=== PATIENT | male | born 1975 | race Caucasian/White ===

== ENCOUNTER 2017-06-05 22:33 | Emergency (ER) | payer OTHER ==
[2017-06-06] MEDS: KETOROLAC 60 MG INJ IM (00:13)
== END 2017-06-06 00:30 | disposition home or self-care (01) ==
LOC: FTE 22:33
DX: M79.662 Pain in left lower leg (principal)
CPT/HCPCS: 96372; 99284-25; J1885

== ENCOUNTER 2017-08-07 11:44 | Emergency (ER) | payer OTHER ==
[2017-08-07] MEDS: HYDROCODONE/APAP (10/325) TAB PO (12:52)
[2017-08-07] MEDS: KETOROLAC 30 MG INJ IM (12:52)
== END 2017-08-07 13:10 | disposition home or self-care (01) ==
LOC: FTE 11:44
DX: M54.5 Low back pain (principal); F17.210 Nicotine dependence, cigarettes, uncomplicated
CPT/HCPCS: 96372; 99284-25; J1885

== ENCOUNTER 2017-10-15 18:40 | Emergency (ER) | payer OTHER | END 2017-10-15 20:49 | disposition home or self-care (01) | LOC: E/R 18:40 | DX: H00.021 Hordeolum internum right upper eyelid (principal); M54.42 Lumbago with sciatica, left side; Z87.891 Personal history of nicotine dependence | CPT/HCPCS: 99284; Z7502 ==

== ENCOUNTER 2017-11-13 08:46 | Emergency (ER) | payer OTHER | END 2017-11-13 09:44 | disposition home or self-care (01) | LOC: FTE 08:46 | DX: H00.014 Hordeolum externum left upper eyelid (principal); Z87.891 Personal history of nicotine dependence | CPT/HCPCS: 99283 ==

== ENCOUNTER 2017-11-15 16:52 | Inpatient (IN) | payer OTHER ==
[2017-11-15] MEDS ORDERED: ASPIRIN 325 MG TAB PO (17:37)
[2017-11-15 17:43] LABS: ADD MAN DIFF? NO
[2017-11-15 17:45] LABS: WHITE BLOOD COUNT 9.5 10^3/ul (4.8-10.8)
[2017-11-15 17:45] LABS: BASOPHILS % 0.3 % (0.0-2.0); EOSINOPHILS % 0.1 % (0.0-7.0); HEMATOCRIT 54.7 % (42.0-52.0); HEMOGLOBIN 17.6 g/dl (14.0-18.0); LYMPHOCYTES # 0.8 10^3/ul (0.8-2.9); LYMPHOCYTES % 8.5 % (15.0-51.0); MEAN CORPUSCULAR HEMOGLOBIN 24.8 pg (29.0-33.0); MEAN CORPUSCULAR HGB CONC 32.2 g/dl (32.0-37.0); MEAN CORPUSCULAR VOLUME 76.9 fl (82.0-101.0); MEAN PLATELET VOLUME 10.6 fl (7.4-10.4); MONOCYTE # 0.6 10^3/ul (0.3-0.9); MONOCYTES % 5.9 % (0.0-11.0); NEUTROPHILS % 84.9 % (39.0-77.0); PLATELET COUNT 292 10^3/UL (140-415); RED BLOOD COUNT 7.11 10^6/ul (4.70-6.10); RED CELL DISTRIBUTION WIDTH 18.9 % (11.5-14.5)
[2017-11-15 17:59] LABS: HEMOGLOBIN A1C 5.6 % (0-5.9)
[2017-11-15 18:00] LABS: INR 0.95; PROTIME 12.8 Sec (11.9-14.9)
[2017-11-15 18:01] LABS: PARTIAL THROMBOPLASTIN TIME 23.5 Sec (25.0-35.0)
[2017-11-15 18:03] LABS: ALANINE AMINOTRANSFERASE 60 IU/L (13-69); ALBUMIN 4.4 g/dl (3.3-4.9); ALBUMIN/GLOBULIN RATIO 1.18; ALKALINE PHOSPHATASE 67 IU/L (42-121); ANION GAP 18 (8-16); ASPARTATE AMINO TRANSFERASE 41 IU/L (15-46); BILIRUBIN,INDIRECT 0.2 mg/dl (0-1.1); BILIRUBIN,TOTAL 0.2 mg/dl (0.2-1.3); BLOOD UREA NITROGEN 26 mg/dl (7-20); CALCIUM 9.9 mg/dl (8.4-10.2); CARBON DIOXIDE 30 mmol/L (21-31); CHLORIDE 99 mmol/L (97-110); CHOL/HDL RATIO 3.7 RATIO; CHOLESTEROL 148 mg/dl (100-200); CREATINE KINASE 552 IU/L (23-200); CREATININE 1.28 mg/dl (0.61-1.24); GLUCOSE 111 mg/dl (70-220); HDL CHOLESTEROL 40 mg/dl (27-67); LDL CHOLESTEROL,CALCULATED 95 mg/dl; POTASSIUM 3.9 mmol/L (3.5-5.1); SODIUM 143 mmol/L (135-144); TOTAL PROTEIN 8.1 g/dl (6.1-8.1); TRIGLYCERIDES 63 mg/dl (0-149)
[2017-11-15 18:04] LABS: ETHANOL < 10.0 mg/dl
[2017-11-15 18:14] LABS: CK-MB 5.46 ng/ml (0.0-2.4); TROPONIN-I 0.015 ng/ml (0.000-0.120)
[2017-11-15] MEDS: niCARdipine-NS 0.1MG/ML DRIP 200 ML IV (18:14)
[2017-11-15] MEDS: SOD CHLORIDE 0.9% 500 ML IV (18:17)
[2017-11-15] MEDS: SOD CHLORIDE 0.9% 100 ML (18:22)
[2017-11-15] MEDS: IOHEXOL 100 ML (18:22)
[2017-11-15] MEDS: LORAZEPAM 0.5 MG TAB PO (18:22)
[2017-11-15] MEDS ORDERED: LORAZEPAM 2 MG INJ IV (19:30)
[2017-11-15] MEDS: SOD CHLORIDE 0.9% 1,000 ML IV (19:30)
[2017-11-15] MEDS ORDERED: ACETAMINOPHEN 1000MG/100ML IV 100 ML IVPB (19:30)
[2017-11-15] MEDS ORDERED: ALBUTEROL/IPRATROPIUM (NEB) 3 ML AMP NEB (22:30)
[2017-11-16] MEDS: DEXTROSE 5%-0.45% NACL 1,000 ML IV ×2 (01:18→03:55)
[2017-11-16] MEDS: BENAZEPRIL 20 MG TAB PO ×2 (01:38→15:26)
[2017-11-16 06:25] LABS: ADD MAN DIFF? NO
[2017-11-16 06:39] LABS: WHITE BLOOD COUNT 7.4 10^3/ul (4.8-10.8)
[2017-11-16 06:39] LABS: BASOPHIL # 0.1 10^3/ul (0.0-0.1); BASOPHILS % 0.7 % (0.0-2.0); EOSINOPHILS % 0.4 % (0.0-7.0); HEMOGLOBIN 17.8 g/dl (14.0-18.0); LYMPHOCYTES # 1.4 10^3/ul (0.8-2.9); LYMPHOCYTES % 19.2 % (15.0-51.0); MEAN CORPUSCULAR HEMOGLOBIN 25.3 pg (29.0-33.0); MEAN CORPUSCULAR HGB CONC 32.4 g/dl (32.0-37.0); MEAN CORPUSCULAR VOLUME 78.2 fl (82.0-101.0); MEAN PLATELET VOLUME 10.2 fl (7.4-10.4); NEUTROPHIL # 4.9 10^3/ul (1.6-7.5); NEUTROPHILS % 65.4 % (39.0-77.0); PLATELET COUNT 285 10^3/UL (140-415); RED BLOOD COUNT 7.03 10^6/ul (4.70-6.10); RED CELL DISTRIBUTION WIDTH 18.9 % (11.5-14.5)
[2017-11-16 06:54] LABS: HEMOGLOBIN A1C 5.7 % (0-5.9)
[2017-11-16 07:34] LABS: ALANINE AMINOTRANSFERASE 55 IU/L (13-69); ALBUMIN 4.1 g/dl (3.3-4.9); ALKALINE PHOSPHATASE 59 IU/L (42-121); ANION GAP 15 (8-16); ASPARTATE AMINO TRANSFERASE 39 IU/L (15-46); BILIRUBIN,INDIRECT 0.6 mg/dl (0-1.1); BILIRUBIN,TOTAL 0.6 mg/dl (0.2-1.3); BLOOD UREA NITROGEN 21 mg/dl (7-20); CALCIUM 9.5 mg/dl (8.4-10.2); CARBON DIOXIDE 34 mmol/L (21-31); CHLORIDE 98 mmol/L (97-110); CHOL/HDL RATIO 3.8 RATIO; CHOLESTEROL 137 mg/dl (100-200); CREATININE 1.24 mg/dl (0.61-1.24); GLUCOSE 93 mg/dl (70-220); HDL CHOLESTEROL 36 mg/dl (27-67); LDL CHOLESTEROL,CALCULATED 81 mg/dl; POTASSIUM 3.2 mmol/L (3.5-5.1); SODIUM 144 mmol/L (135-144); TOTAL PROTEIN 7.8 g/dl (6.1-8.1); TRIGLYCERIDES 98 mg/dl (0-149)
[2017-11-16] MEDS: hydrALAzine 20 MG INJ IV ×2 (10:23→15:18)
[2017-11-16] MEDS: FAMOTIDINE 20 MG INJ IV ×2 (10:23→20:14)
[2017-11-16] MEDS: HYDROCHLOROTHIAZIDE 25 MG TAB PO (15:18)
[2017-11-16] MEDS: POTASSIUM CHLORIDE (SR) 20 MEQ TAB PO (15:26)
[2017-11-17 06:17] LABS: ADD MAN DIFF? NO
[2017-11-17 06:27] LABS: BASOPHIL # 0.1 10^3/ul (0.0-0.1); BASOPHILS % 0.9 % (0.0-2.0); EOSINOPHILS # 0.1 10^3/ul (0.0-0.5); EOSINOPHILS % 0.7 % (0.0-7.0); HEMATOCRIT 57.5 % (42.0-52.0); HEMOGLOBIN 18.4 g/dl (14.0-18.0); LYMPHOCYTES # 1.4 10^3/ul (0.8-2.9); LYMPHOCYTES % 16.4 % (15.0-51.0); MEAN CORPUSCULAR HEMOGLOBIN 24.5 pg (29.0-33.0); MEAN CORPUSCULAR VOLUME 76.6 fl (82.0-101.0); MEAN PLATELET VOLUME 10.4 fl (7.4-10.4); MONOCYTES % 11.7 % (0.0-11.0); NEUTROPHIL # 5.9 10^3/ul (1.6-7.5); NEUTROPHILS % 69.9 % (39.0-77.0); PLATELET COUNT 287 10^3/UL (140-415); RED BLOOD COUNT 7.51 10^6/ul (4.70-6.10); RED CELL DISTRIBUTION WIDTH 19.9 % (11.5-14.5)
[2017-11-17 06:27] LABS: WHITE BLOOD COUNT 8.5 10^3/ul (4.8-10.8)
[2017-11-17 06:48] LABS: ANION GAP 17 (8-16); BLOOD UREA NITROGEN 24 mg/dl (7-20); CALCIUM 9.5 mg/dl (8.4-10.2); CARBON DIOXIDE 30 mmol/L (21-31); CHLORIDE 102 mmol/L (97-110); CREATININE 1.31 mg/dl (0.61-1.24); GLUCOSE 91 mg/dl (70-220); MAGNESIUM 1.9 mg/dl (1.7-2.5); POTASSIUM 3.8 mmol/L (3.5-5.1); SODIUM 145 mmol/L (135-144)
[2017-11-17] MEDS: FAMOTIDINE 20 MG INJ IV ×2 (08:42→20:40)
[2017-11-17] MEDS: BENAZEPRIL 20 MG TAB PO (08:43)
[2017-11-17] MEDS: HYDROCHLOROTHIAZIDE 25 MG TAB PO (08:44)
[2017-11-17] MEDS ORDERED: BENAZEPRIL HYDROCHLOROTHIAZIDE PO (09:00)
[2017-11-17] MEDS: LORAZEPAM 2 MG INJ IV (13:29)
[2017-11-17] MEDS: ONDANSETRON 4 MG INJ IV (19:56)
[2017-11-18 05:45] LABS: ADD MAN DIFF? NO
[2017-11-18 05:54] LABS: WHITE BLOOD COUNT 6.4 10^3/ul (4.8-10.8)
[2017-11-18 05:54] LABS: BASOPHIL # 0.1 10^3/ul (0.0-0.1); BASOPHILS % 1.4 % (0.0-2.0); EOSINOPHILS # 0.1 10^3/ul (0.0-0.5); EOSINOPHILS % 1.2 % (0.0-7.0); HEMATOCRIT 58.8 % (42.0-52.0); HEMOGLOBIN 18.7 g/dl (14.0-18.0); LYMPHOCYTES # 1.3 10^3/ul (0.8-2.9); LYMPHOCYTES % 20.4 % (15.0-51.0); MEAN CORPUSCULAR HEMOGLOBIN 24.8 pg (29.0-33.0); MEAN CORPUSCULAR HGB CONC 31.8 g/dl (32.0-37.0); MONOCYTE # 0.8 10^3/ul (0.3-0.9); MONOCYTES % 12.9 % (0.0-11.0); NEUTROPHIL # 4.1 10^3/ul (1.6-7.5); NEUTROPHILS % 63.8 % (39.0-77.0); PLATELET COUNT 295 10^3/UL (140-415); RED BLOOD COUNT 7.54 10^6/ul (4.70-6.10); RED CELL DISTRIBUTION WIDTH 18.9 % (11.5-14.5)
[2017-11-18 06:21] LABS: ANION GAP 17 (8-16); BLOOD UREA NITROGEN 23 mg/dl (7-20); CALCIUM 9.3 mg/dl (8.4-10.2); CARBON DIOXIDE 33 mmol/L (21-31); CHLORIDE 97 mmol/L (97-110); CREATININE 1.54 mg/dl (0.61-1.24); GLUCOSE 90 mg/dl (70-220); SODIUM 143 mmol/L (135-144)
[2017-11-18] MEDS: FAMOTIDINE 20 MG INJ IV ×2 (08:25→21:06)
[2017-11-18] MEDS: BENAZEPRIL 20 MG TAB PO (08:25)
[2017-11-18] MEDS: HYDROCHLOROTHIAZIDE 25 MG TAB PO (08:25)
[2017-11-18] MEDS: AMLODIPINE 5 MG TAB PO ×2 (12:54→21:07)
[2017-11-18] MEDS: SOD CHLORIDE 0.9% 1,000 ML IV (12:54)
[2017-11-19] MEDS: SOD CHLORIDE 0.9% 1,000 ML IV (01:18)
[2017-11-19] MEDS: AMLODIPINE 5 MG TAB PO (08:18)
[2017-11-19] MEDS: FAMOTIDINE 20 MG INJ IV (08:18)
[2017-11-19 11:16] LABS: ADD MAN DIFF? NO
[2017-11-19 11:18] LABS: BASOPHIL # 0.1 10^3/ul (0.0-0.1); BASOPHILS % 0.5 % (0.0-2.0); EOSINOPHILS % 0.4 % (0.0-7.0); HEMATOCRIT 61.4 % (42.0-52.0); HEMOGLOBIN 19.8 g/dl (14.0-18.0); LYMPHOCYTES # 1.6 10^3/ul (0.8-2.9); LYMPHOCYTES % 17.2 % (15.0-51.0); MEAN CORPUSCULAR HEMOGLOBIN 24.9 pg (29.0-33.0); MEAN CORPUSCULAR HGB CONC 32.2 g/dl (32.0-37.0); MEAN CORPUSCULAR VOLUME 77.2 fl (82.0-101.0); MEAN PLATELET VOLUME 10.3 fl (7.4-10.4); MONOCYTE # 0.8 10^3/ul (0.3-0.9); MONOCYTES % 8.4 % (0.0-11.0); NEUTROPHIL # 6.9 10^3/ul (1.6-7.5); NEUTROPHILS % 73.2 % (39.0-77.0); PLATELET COUNT 324 10^3/UL (140-415); RED BLOOD COUNT 7.95 10^6/ul (4.70-6.10); RED CELL DISTRIBUTION WIDTH 19.9 % (11.5-14.5)
[2017-11-19 11:18] LABS: WHITE BLOOD COUNT 9.4 10^3/ul (4.8-10.8)
[2017-11-19 12:01] LABS: ANION GAP 20 (8-16); BLOOD UREA NITROGEN 21 mg/dl (7-20); CALCIUM 9.5 mg/dl (8.4-10.2); CARBON DIOXIDE 28 mmol/L (21-31); CHLORIDE 102 mmol/L (97-110); GLUCOSE 74 mg/dl (70-220); POTASSIUM 3.7 mmol/L (3.5-5.1); SODIUM 146 mmol/L (135-144)
== END 2017-11-19 13:39 | disposition home or self-care (01) | DRG 65 ==
LOC: E/R 16:52 → ICU 18:26 → 6WM 11-16 16:00
DX: I61.8 Other nontraumatic intracerebral hemorrhage (principal); I16.1 Hypertensive emergency; N17.9 Acute kidney failure, unspecified; I10 Essential (primary) hypertension; G47.33 Obstructive sleep apnea (adult) (pediatric); M54.5 Low back pain; E87.6 Hypokalemia; E66.9 Obesity, unspecified; Z68.38 Body mass index [BMI] 38.0-38.9, adult
CPT/HCPCS: 36415; 70450; 70496; 70498; 70551; 71045; 80048; 80053; 80061; 80307; 82550; 82553; 82962; 83036; 83735; 84484; 85025; 85610; 85730; 93005; 94660; 96374; 99291-25

== ENCOUNTER 2017-12-10 22:27 | Emergency (ER) | payer SELFPAY, OTHER | END 2017-12-11 00:11 | disposition left against medical advice (07) | LOC: E/R 22:27 | DX: Z53.21 Procedure and treatment not carried out due to patient leaving prior to being seen by health care provider (principal) ==

== ENCOUNTER 2017-12-11 19:15 | Inpatient (IN) | payer OTHER ==
[2017-12-11 20:29] LABS: ADD MAN DIFF? NO
[2017-12-11 20:31] LABS: WHITE BLOOD COUNT 6.7 10^3/ul (4.8-10.8)
[2017-12-11 20:31] LABS: BASOPHIL # 0.1 10^3/ul (0.0-0.1); BASOPHILS % 0.9 % (0.0-2.0); EOSINOPHILS # 0.2 10^3/ul (0.0-0.5); EOSINOPHILS % 2.6 % (0.0-7.0); HEMATOCRIT 50.5 % (42.0-52.0); HEMOGLOBIN 16.7 g/dl (14.0-18.0); LYMPHOCYTES # 1.1 10^3/ul (0.8-2.9); LYMPHOCYTES % 16.1 % (15.0-51.0); MEAN CORPUSCULAR HEMOGLOBIN 25.1 pg (29.0-33.0); MEAN CORPUSCULAR HGB CONC 33.1 g/dl (32.0-37.0); MEAN CORPUSCULAR VOLUME 75.9 fl (82.0-101.0); MEAN PLATELET VOLUME 10.3 fl (7.4-10.4); MONOCYTE # 0.5 10^3/ul (0.3-0.9); MONOCYTES % 7.5 % (0.0-11.0); NEUTROPHIL # 4.9 10^3/ul (1.6-7.5); NEUTROPHILS % 72.9 % (39.0-77.0); PLATELET COUNT 190 10^3/UL (140-415); RED BLOOD COUNT 6.65 10^6/ul (4.70-6.10); RED CELL DISTRIBUTION WIDTH 18.3 % (11.5-14.5)
[2017-12-11] MEDS: SOD CHLORIDE 0.9% 1,000 ML IV ×2 (20:35→22:46)
[2017-12-11 20:56] LABS: ANION GAP 14 (8-16); BLOOD UREA NITROGEN 25 mg/dl (7-20); CALCIUM 9.4 mg/dl (8.4-10.2); CARBON DIOXIDE 30 mmol/L (21-31); CHLORIDE 100 mmol/L (97-110); GLUCOSE 82 mg/dl (70-220); LIPASE 195 U/L (23-300); POTASSIUM 3.5 mmol/L (3.5-5.1); SODIUM 140 mmol/L (135-144)
[2017-12-11 21:06] LABS: CREATININE 1.25 mg/dl (0.61-1.24)
[2017-12-11] MEDS: ONDANSETRON 4 MG INJ IV (21:11)
[2017-12-11 21:12] LABS: TROPONIN-I 0.019 ng/ml (0.000-0.120)
[2017-12-11 21:58] LABS: CREATINE KINASE 6888 IU/L (23-200)
[2017-12-11] MEDS: LACTATED RINGER'S 1,000 ML IV (23:48)
[2017-12-12] MEDS ORDERED: ACETAMINOPHEN 325 MG TAB PO (00:30)
[2017-12-12] MEDS: SOD CHLORIDE 0.9% 1,000 ML IV ×4 (01:02→20:11)
[2017-12-12] MEDS ORDERED: ONDANSETRON 4 MG INJ IV (07:00)
[2017-12-12] MEDS ORDERED: NACL 0.9% 3 ML SYG IV (07:00)
[2017-12-12] MEDS: AMLODIPINE 5 MG TAB PO ×2 (08:25→20:12)
[2017-12-12] MEDS: MULTIVITAMINS THERAPEUTIC TAB PO (08:25)
[2017-12-12 09:42] LABS: ADD MAN DIFF? NO
[2017-12-12 09:48] LABS: WHITE BLOOD COUNT 4.7 10^3/ul (4.8-10.8)
[2017-12-12 09:48] LABS: BASOPHIL # 0.1 10^3/ul (0.0-0.1); BASOPHILS % 1.1 % (0.0-2.0); EOSINOPHILS # 0.2 10^3/ul (0.0-0.5); HEMATOCRIT 51.2 % (42.0-52.0); HEMOGLOBIN 17.1 g/dl (14.0-18.0); LYMPHOCYTES # 0.9 10^3/ul (0.8-2.9); LYMPHOCYTES % 19.7 % (15.0-51.0); MEAN CORPUSCULAR HEMOGLOBIN 25.6 pg (29.0-33.0); MEAN CORPUSCULAR HGB CONC 33.4 g/dl (32.0-37.0); MEAN CORPUSCULAR VOLUME 76.8 fl (82.0-101.0); MEAN PLATELET VOLUME 9.8 fl (7.4-10.4); MONOCYTE # 0.5 10^3/ul (0.3-0.9); MONOCYTES % 10.4 % (0.0-11.0); NEUTROPHIL # 3.1 10^3/ul (1.6-7.5); NEUTROPHILS % 64.6 % (39.0-77.0); PLATELET COUNT 176 10^3/UL (140-415); RED BLOOD COUNT 6.67 10^6/ul (4.70-6.10); RED CELL DISTRIBUTION WIDTH 18.5 % (11.5-14.5)
[2017-12-12 10:13] LABS: ALANINE AMINOTRANSFERASE 96 IU/L (13-69); ALBUMIN 3.5 g/dl (3.3-4.9); ALBUMIN/GLOBULIN RATIO 1.12; ALKALINE PHOSPHATASE 54 IU/L (42-121); ANION GAP 11 (8-16); ASPARTATE AMINO TRANSFERASE 106 IU/L (15-46); BILIRUBIN,INDIRECT 0.7 mg/dl (0-1.1); BILIRUBIN,TOTAL 0.7 mg/dl (0.2-1.3); BLOOD UREA NITROGEN 13 mg/dl (7-20); CARBON DIOXIDE 32 mmol/L (21-31); CHLORIDE 102 mmol/L (97-110); CREATININE 1.04 mg/dl (0.61-1.24); GLUCOSE 97 mg/dl (70-220); MAGNESIUM 1.6 mg/dl (1.7-2.5); POTASSIUM 3.4 mmol/L (3.5-5.1); SODIUM 142 mmol/L (135-144); TOTAL PROTEIN 6.6 g/dl (6.1-8.1)
[2017-12-12 10:20] LABS: CREATINE KINASE 2919 IU/L (23-200)
[2017-12-12] MEDS: METOPROLOL (XL) 25 MG TAB PO (14:28)
[2017-12-13] MEDS: SOD CHLORIDE 0.9% 1,000 ML IV ×4 (02:54→16:45)
[2017-12-13 05:43] LABS: ADD MAN DIFF? NO
[2017-12-13 05:49] LABS: WHITE BLOOD COUNT 4.2 10^3/ul (4.8-10.8)
[2017-12-13 05:49] LABS: BASOPHILS % 0.9 % (0.0-2.0); EOSINOPHILS # 0.2 10^3/ul (0.0-0.5); EOSINOPHILS % 4.7 % (0.0-7.0); HEMATOCRIT 51.9 % (42.0-52.0); LYMPHOCYTES # 1.1 10^3/ul (0.8-2.9); MEAN CORPUSCULAR HEMOGLOBIN 25.2 pg (29.0-33.0); MEAN CORPUSCULAR HGB CONC 32.8 g/dl (32.0-37.0); MEAN CORPUSCULAR VOLUME 76.9 fl (82.0-101.0); MEAN PLATELET VOLUME 10.1 fl (7.4-10.4); MONOCYTE # 0.5 10^3/ul (0.3-0.9); MONOCYTES % 11.3 % (0.0-11.0); NEUTROPHIL # 2.4 10^3/ul (1.6-7.5); NEUTROPHILS % 56.1 % (39.0-77.0); PLATELET COUNT 191 10^3/UL (140-415); RED BLOOD COUNT 6.75 10^6/ul (4.70-6.10); RED CELL DISTRIBUTION WIDTH 18.4 % (11.5-14.5)
[2017-12-13 06:26] LABS: CREATINE KINASE 1282 IU/L (23-200)
[2017-12-13 06:54] LABS: ANION GAP 12 (8-16); CALCIUM 9.4 mg/dl (8.4-10.2); CARBON DIOXIDE 32 mmol/L (21-31); CHLORIDE 102 mmol/L (97-110); CREATININE 1.12 mg/dl (0.61-1.24); GLUCOSE 94 mg/dl (70-220); MAGNESIUM 1.5 mg/dl (1.7-2.5); PHOSPHORUS 4.7 mg/dl (2.5-4.9); POTASSIUM 3.9 mmol/L (3.5-5.1); SODIUM 142 mmol/L (135-144)
[2017-12-13 07:50] LABS: BLOOD UREA NITROGEN 15 mg/dl (7-20)
[2017-12-13 08:34] LABS: HEMOGLOBIN A1C 5.7 % (0-5.9)
[2017-12-13] MEDS: MULTIVITAMINS THERAPEUTIC TAB PO (08:36)
[2017-12-13] MEDS: METOPROLOL (XL) 25 MG TAB PO (08:37)
[2017-12-13] MEDS: AMLODIPINE 5 MG TAB PO (08:37)
[2017-12-13 16:44] LABS: CREATINE KINASE 967 IU/L (23-200)
== END 2017-12-13 18:00 | disposition home or self-care (01) | DRG 558 ==
LOC: 6WM 23:09 → E/R 19:15
DX: M62.82 Rhabdomyolysis (principal); E66.9 Obesity, unspecified; Z68.39 Body mass index [BMI] 39.0-39.9, adult; I10 Essential (primary) hypertension; Z86.73 Personal history of transient ischemic attack (TIA), and cerebral infarction without residual deficits; G47.33 Obstructive sleep apnea (adult) (pediatric); Z87.891 Personal history of nicotine dependence; F41.9 Anxiety disorder, unspecified
CPT/HCPCS: 36415; 70450; 71045; 80048; 80053; 82550; 83036; 83690; 83735; 84100; 84484; 85025; 93005; 96374; 99285-25

== ENCOUNTER 2017-12-19 17:59 | Emergency (ER) | payer OTHER ==
[2017-12-19] MEDS: NICARDipine HCL 30 MG CAPSULE PO (19:08)
== END 2017-12-19 19:53 | disposition home or self-care (01) ==
LOC: E/R 17:59
DX: I10 Essential (primary) hypertension (principal)
CPT/HCPCS: 99283; Z7502

== ENCOUNTER 2018-02-06 04:54 | Emergency (ER) | payer OTHER ==
[2018-02-06 05:54] LABS: ADD MAN DIFF? NO
[2018-02-06 05:57] LABS: BASOPHIL # 0.1 10^3/ul (0.0-0.1); BASOPHILS % 0.9 % (0.0-2.0); EOSINOPHILS # 0.2 10^3/ul (0.0-0.5); EOSINOPHILS % 4.1 % (0.0-7.0); HEMATOCRIT 46.6 % (42.0-52.0); HEMOGLOBIN 15.9 g/dl (14.0-18.0); LYMPHOCYTES # 1.2 10^3/ul (0.8-2.9); LYMPHOCYTES % 21.1 % (15.0-51.0); MEAN CORPUSCULAR HEMOGLOBIN 26.8 pg (29.0-33.0); MEAN CORPUSCULAR HGB CONC 34.1 g/dl (32.0-37.0); MEAN CORPUSCULAR VOLUME 78.6 fl (82.0-101.0); MEAN PLATELET VOLUME 9.9 fl (7.4-10.4); MONOCYTE # 0.6 10^3/ul (0.3-0.9); MONOCYTES % 10.5 % (0.0-11.0); NEUTROPHIL # 3.6 10^3/ul (1.6-7.5); NEUTROPHILS % 63.2 % (39.0-77.0); PLATELET COUNT 188 10^3/UL (140-415); RED BLOOD COUNT 5.93 10^6/ul (4.70-6.10); RED CELL DISTRIBUTION WIDTH 19.5 % (11.5-14.5)
[2018-02-06 05:57] LABS: WHITE BLOOD COUNT 5.6 10^3/ul (4.8-10.8)
[2018-02-06] MEDS: NITROGLYCERIN (SL) 0.4 MG TAB SL (06:30)
[2018-02-06 06:33] LABS: INR 0.98; PROTIME 13.1 Sec (11.9-14.9)
[2018-02-06 06:34] LABS: PARTIAL THROMBOPLASTIN TIME 25.7 Sec (23.0-35.0)
[2018-02-06 06:49] LABS: ANION GAP 11 (5-13); BLOOD UREA NITROGEN 20 mg/dl (7-20); CALCIUM 9.4 mg/dl (8.4-10.2); CARBON DIOXIDE 33 mmol/L (21-31); CHLORIDE 99 mmol/L (97-110); CREATININE 0.96 mg/dl (0.61-1.24); Estimated GFR > 60 mL/min (>60); GLUCOSE 107 mg/dl (70-220); POTASSIUM 3.4 mmol/L (3.5-5.1); SODIUM 143 mmol/L (135-144)
[2018-02-06] MEDS: ENALAPRILAT 1.25 MG INJ IV (06:50)
[2018-02-06] MEDS: SOD CHLORIDE 0.9% 1,000 ML IV (06:52)
[2018-02-06 07:01] LABS: TROPONIN-I < 0.012 ng/ml (0.000-0.120)
[2018-02-06 09:59] LABS: ALANINE AMINOTRANSFERASE 63 IU/L (13-69); ALBUMIN 4.6 g/dl (3.3-4.9); ALKALINE PHOSPHATASE 73 IU/L (42-121); ASPARTATE AMINO TRANSFERASE 38 IU/L (15-46); BILIRUBIN,INDIRECT 0.4 mg/dl (0-1.1); BILIRUBIN,TOTAL 0.4 mg/dl (0.2-1.3); LIPASE 233 U/L (23-300); TOTAL PROTEIN 7.2 g/dl (6.1-8.1)
== END 2018-02-06 07:48 | disposition home or self-care (01) ==
LOC: E/R 04:54
DX: I10 Essential (primary) hypertension (principal); R40.2142 Coma scale, eyes open, spontaneous, at arrival to emergency department; R40.2252 Coma scale, best verbal response, oriented, at arrival to emergency department; R40.2362 Coma scale, best motor response, obeys commands, at arrival to emergency department; R51 Headache
CPT/HCPCS: 36415; 70450; 71045; 80048; 80076; 82247; 82248; 83690; 84484; 85025; 85610; 85730; 93005; 96374; 99285-25

== ENCOUNTER 2018-09-17 22:05 | Emergency (ER) | payer OTHER ==
[2018-09-17 23:08] LABS: ADD MAN DIFF? NO
[2018-09-17 23:09] LABS: WHITE BLOOD COUNT 7.7 10^3/ul (4.8-10.8)
[2018-09-17 23:09] LABS: BASOPHIL # 0.1 10^3/ul (0.0-0.1); BASOPHILS % 0.8 % (0.0-2.0); EOSINOPHILS # 0.1 10^3/ul (0.0-0.5); EOSINOPHILS % 1.3 % (0.0-7.0); HEMATOCRIT 42.7 % (42.0-52.0); LYMPHOCYTES # 1.5 10^3/ul (0.8-2.9); LYMPHOCYTES % 19.7 % (15.0-51.0); MEAN CORPUSCULAR HEMOGLOBIN 30.7 pg (29.0-33.0); MEAN CORPUSCULAR HGB CONC 35.1 g/dl (32.0-37.0); MEAN CORPUSCULAR VOLUME 87.5 fl (82.0-101.0); MEAN PLATELET VOLUME 10.5 fl (7.4-10.4); MONOCYTE # 0.7 10^3/ul (0.3-0.9); MONOCYTES % 9.5 % (0.0-11.0); NEUTROPHIL # 5.3 10^3/ul (1.6-7.5); NEUTROPHILS % 68.4 % (39.0-77.0); PLATELET COUNT 195 10^3/UL (140-415); RED BLOOD COUNT 4.88 10^6/ul (4.70-6.10); RED CELL DISTRIBUTION WIDTH 13.1 % (11.5-14.5)
[2018-09-17 23:27] LABS: ANION GAP 10 (5-13); BLOOD UREA NITROGEN 16 mg/dl (7-20); CARBON DIOXIDE 29 mmol/L (21-31); CHLORIDE 103 mmol/L (97-110); CREATININE 1.33 mg/dl (0.61-1.24); Estimated GFR 58 mL/min (>60); GLUCOSE 115 mg/dl (70-220); POTASSIUM 3.7 mmol/L (3.5-5.1); SODIUM 142 mmol/L (135-144)
[2018-09-18 02:40] LABS: TROPONIN-I 0.027 ng/ml (0.000-0.120)
== END 2018-09-18 03:04 | disposition home or self-care (01) ==
LOC: E/R 09-18 03:04
DX: R07.89 Other chest pain (principal); R40.2142 Coma scale, eyes open, spontaneous, at arrival to emergency department; R40.2252 Coma scale, best verbal response, oriented, at arrival to emergency department; R40.2362 Coma scale, best motor response, obeys commands, at arrival to emergency department; I10 Essential (primary) hypertension; Z86.73 Personal history of transient ischemic attack (TIA), and cerebral infarction without residual deficits
CPT/HCPCS: 36415; 71045; 80048; 84484; 85025; 93005; 99285-25

== ENCOUNTER 2018-11-01 02:33 | Inpatient (IN) | payer OTHER ==
[2018-11-01 03:28] LABS: ADD MAN DIFF? NO
[2018-11-01] MEDS: KETOROLAC 15 MG INJ IV (03:29)
[2018-11-01] MEDS: BISACODYL 10 MG SUPP PR (03:30)
[2018-11-01 03:45] LABS: ALANINE AMINOTRANSFERASE 157 IU/L (13-69); ALBUMIN 4.4 g/dl (3.3-4.9); ALBUMIN/GLOBULIN RATIO 1.25; ALKALINE PHOSPHATASE 79 IU/L (42-121); ANION GAP 13 (5-13); ASPARTATE AMINO TRANSFERASE 76 IU/L (15-46); BILIRUBIN,INDIRECT 0.5 mg/dl (0-1.1); BILIRUBIN,TOTAL 0.5 mg/dl (0.2-1.3); BLOOD UREA NITROGEN 11 mg/dl (7-20); CALCIUM 9.2 mg/dl (8.4-10.2); CARBON DIOXIDE 29 mmol/L (21-31); CHLORIDE 99 mmol/L (97-110); CREATININE 1.13 mg/dl (0.61-1.24); Estimated GFR > 60 mL/min (>60); GLUCOSE 98 mg/dl (70-220); LIPASE 1434 U/L (23-300); POTASSIUM 4.3 mmol/L (3.5-5.1); SODIUM 141 mmol/L (135-144); TOTAL PROTEIN 7.9 g/dl (6.1-8.1)
[2018-11-01 03:59] LABS: BASOPHIL # 0.1 10^3/ul (0.0-0.1); BASOPHILS % 0.7 % (0.0-2.0); EOSINOPHILS # 0.1 10^3/ul (0.0-0.5); EOSINOPHILS % 0.7 % (0.0-7.0); HEMATOCRIT 51.2 % (42.0-52.0); LYMPHOCYTES # 1.4 10^3/ul (0.8-2.9); LYMPHOCYTES % 15.9 % (15.0-51.0); MEAN CORPUSCULAR HEMOGLOBIN 30.4 pg (29.0-33.0); MEAN CORPUSCULAR HGB CONC 33.2 g/dl (32.0-37.0); MEAN CORPUSCULAR VOLUME 91.4 fl (82.0-101.0); MEAN PLATELET VOLUME 10.9 fl (7.4-10.4); MONOCYTE # 0.7 10^3/ul (0.3-0.9); MONOCYTES % 7.9 % (0.0-11.0); NEUTROPHIL # 6.7 10^3/ul (1.6-7.5); NEUTROPHILS % 74.1 % (39.0-77.0); NUCLEATED RED BLOOD CELLS% 0.2 /100WBC (0.0-0.0); PLATELET COUNT 268 10^3/UL (140-415); RED CELL DISTRIBUTION WIDTH 15.6 % (11.5-14.5)
[2018-11-01 04:08] LABS: URINE BLOOD (Dip) POC Trace-lysed (NEGATIVE); URINE GLUCOSE (Dip) POC Negative (NEGATIVE); URINE KETONES (Dip) POC 2+ (NEGATIVE); URINE LEUKOCYTE EST (Dip) POC Negative (NEGATIVE); URINE NITRITE (Dip) POC Negative (NEGATIVE); URINE TOTAL PROTEIN POC 2+ (NEGATIVE)
[2018-11-01] MEDS ORDERED: ACETAMINOPHEN 325 MG TAB PO ×2 (07:30→08:00)
[2018-11-01] MEDS ORDERED: ONDANSETRON 4 MG INJ IV ×2 (07:30→08:00)
[2018-11-01] MEDS ORDERED: NACL 0.9% 3 ML SYG IV (08:00)
[2018-11-01] MEDS: DEXTROSE 5%-0.45% NACL 1,000 ML IV ×2 (08:55→17:25)
[2018-11-01] MEDS: FAMOTIDINE 20 MG INJ IV ×2 (08:55→20:15)
[2018-11-01] MEDS: morphine 2 MG INJ IV ×3 (09:03→20:16)
[2018-11-01] MEDS ORDERED: hydrALAzine 20 MG INJ IV (10:30)
[2018-11-02] MEDS: morphine 2 MG INJ IV ×3 (00:21→19:42)
[2018-11-02] MEDS: DEXTROSE 5%-0.45% NACL 1,000 ML IV ×5 (01:40→20:38)
[2018-11-02 05:13] LABS: ADD MAN DIFF? NO
[2018-11-02 05:19] LABS: BASOPHIL # 0.1 10^3/ul (0.0-0.1); EOSINOPHILS # 0.1 10^3/ul (0.0-0.5); EOSINOPHILS % 1.2 % (0.0-7.0); HEMOGLOBIN 16.6 g/dl (14.0-18.0); LYMPHOCYTES % 14.3 % (15.0-51.0); MEAN CORPUSCULAR HEMOGLOBIN 29.9 pg (29.0-33.0); MEAN CORPUSCULAR HGB CONC 31.9 g/dl (32.0-37.0); MEAN CORPUSCULAR VOLUME 93.5 fl (82.0-101.0); MEAN PLATELET VOLUME 10.5 fl (7.4-10.4); MONOCYTE # 0.8 10^3/ul (0.3-0.9); MONOCYTES % 11.7 % (0.0-11.0); NEUTROPHIL # 5.2 10^3/ul (1.6-7.5); NEUTROPHILS % 71.4 % (39.0-77.0); PLATELET COUNT 269 10^3/UL (140-415); RED BLOOD COUNT 5.56 10^6/ul (4.70-6.10); RED CELL DISTRIBUTION WIDTH 15.4 % (11.5-14.5)
[2018-11-02 05:19] LABS: WHITE BLOOD COUNT 7.2 10^3/ul (4.8-10.8)
[2018-11-02 06:01] LABS: ALANINE AMINOTRANSFERASE 156 IU/L (13-69); ALBUMIN/GLOBULIN RATIO 1.11; ALKALINE PHOSPHATASE 72 IU/L (42-121); ANION GAP 7 (5-13); ASPARTATE AMINO TRANSFERASE 62 IU/L (15-46); BILIRUBIN,INDIRECT 0.6 mg/dl (0-1.1); BILIRUBIN,TOTAL 0.6 mg/dl (0.2-1.3); BLOOD UREA NITROGEN 9 mg/dl (7-20); CALCIUM 8.5 mg/dl (8.4-10.2); CARBON DIOXIDE 33 mmol/L (21-31); CHLORIDE 99 mmol/L (97-110); CREATININE 1.17 mg/dl (0.61-1.24); Estimated GFR > 60 mL/min (>60); GLUCOSE 100 mg/dl (70-220); MAGNESIUM 2.2 mg/dl (1.7-2.5); PHOSPHORUS 3.6 mg/dl (2.5-4.9); POTASSIUM 4.4 mmol/L (3.5-5.1); SODIUM 139 mmol/L (135-144); TOTAL PROTEIN 7.6 g/dl (6.1-8.1)
[2018-11-02] MEDS: FAMOTIDINE 20 MG INJ IV ×2 (08:55→20:31)
[2018-11-02 10:26] LABS: HAAIG REFLEX REFLEX FILED
[2018-11-02 10:29] LABS: LIPASE 1303 U/L (23-300)
[2018-11-02 12:09] LABS: HEPATITIS B SURFACE ANTIGEN NEGATIVE (NEGATIVE)
[2018-11-02 12:27] LABS: HEPATITIS B CORE ANTIBODY NEGATIVE (NEGATIVE); HEPATITIS C VIRAL ANTIBODY NEGATIVE (NEGATIVE)
[2018-11-03] MEDS: DEXTROSE 5%-0.45% NACL 1,000 ML IV (05:50)
[2018-11-03 07:08] LABS: ALANINE AMINOTRANSFERASE 144 IU/L (13-69); ALBUMIN/GLOBULIN RATIO 1.11; ALKALINE PHOSPHATASE 73 IU/L (42-121); ANION GAP 9 (5-13); ASPARTATE AMINO TRANSFERASE 50 IU/L (15-46); BILIRUBIN,INDIRECT 0.6 mg/dl (0-1.1); BILIRUBIN,TOTAL 0.6 mg/dl (0.2-1.3); BLOOD UREA NITROGEN 9 mg/dl (7-20); CALCIUM 8.7 mg/dl (8.4-10.2); CARBON DIOXIDE 27 mmol/L (21-31); CHLORIDE 102 mmol/L (97-110); Estimated GFR > 60 mL/min (>60); GLUCOSE 87 mg/dl (70-220); POTASSIUM 4.1 mmol/L (3.5-5.1); SODIUM 138 mmol/L (135-144); TOTAL PROTEIN 7.6 g/dl (6.1-8.1)
[2018-11-03] MEDS: FAMOTIDINE 20 MG INJ IV (08:33)
[2018-11-03 09:54] LABS: LIPASE 646 U/L (23-300)
== END 2018-11-03 15:44 | disposition home or self-care (01) | DRG 439 ==
LOC: E/R 02:33 → PP2 04:38
DX: K85.90 Acute pancreatitis without necrosis or infection, unspecified (principal); Z68.41 Body mass index [BMI] 40.0-44.9, adult; K59.00 Constipation, unspecified; K76.0 Fatty (change of) liver, not elsewhere classified; I10 Essential (primary) hypertension; F41.9 Anxiety disorder, unspecified; E66.9 Obesity, unspecified; Z71.3 Dietary counseling and surveillance; Z86.73 Personal history of transient ischemic attack (TIA), and cerebral infarction without residual deficits
CPT/HCPCS: 36415; 74150; 76705; 80053; 81003; 83690; 83735; 84100; 85025; 86704; 86709; 86803; 87340; 96374; 99285-25